=== PATIENT | female | born 1960 | race Caucasian/White ===

== ENCOUNTER → 2018-11-05 | Outpatient (CLI) | payer OTHER ==
[~2018-11-05] MED LIST: BACTRIM DS 8001 TAB PO; IBU400 MG PO; MOTRIN 800800 MG/TAB PO; NO HOME MEDICATIONS; TRAMADOL50 MG PO
== END ==
LOC: MC.RAD 12:54
DX: Z12.31 Encounter for screening mammogram for malignant neoplasm of breast (principal)

== ENCOUNTER 2019-04-01 08:42 | Inpatient (IN) | payer OTHER ==
[~2019-04-01] VITALS: Ht 167.6 cm; Wt 113.4 kg
[2019-06-29] VITALS (11 sets, daily range): BP systolic 98–145; BP diastolic 44–89; PULSE 69–91; TEMP 97.8–98.9
--- NOTE | 2019-06-29 18:00 | NUR ---
Patient has been doing well since getting back from surgery. She walked the hallways and made a lap around the entire floor. Urine output is adequate. Tolerating clear liquid diet well without nausea. IV to INT as ordered. No complaints of pain or nausea. No other changes at this time. Call light within reach.
--- NOTE | 2019-06-29 21:00 | NUR ---
PATIENT IN BED, ALERT AND ORIENTED X4. HAS SL TO LEFT WRIST WITHOUT REDNESS OR SWELLING. HAS ROBOTIC SITES TO LEFT ABD WITH BANDAIDS, LOW TRANSVERSE INCISION WITH DRSG D/I. CHUN TO BSD WITH YELLOW URINE. REPORTS FEELING HUNGRY, PUDDING PROVIDED. DENIES PAIN. HAS CPAP AT BEDSIDE, RT WILL ASSIST WITH SETUP. NO NEEDS AT THIS TIME.
[2019-06-30] VITALS (7 sets, daily range): BP systolic 119–139; BP diastolic 51–86; PULSE 71–98; TEMP 97.6–98.9
--- NOTE | 2019-06-30 00:30 | NUR ---
HAS CPAP ON. NO CONCERNS OFFERED AT THIS TIME. VSS.
--- NOTE | 2019-06-30 04:15 | NUR ---
Pt awake, ambulates in hallway with steady gait. Francisco cath will be dc'd today. Denies pain, emptied 550cc of yellow urine from francisco.
[2019-06-30 05:45] LABS: BASO % 0.3 % (0.0-2.0); EOS % 0.1 % (0-4.0); GRAN # 10.8 (1.4-6.5); HEMATOCRIT 38.3 % (37.0-47.0); HEMOGLOBIN 12.2 g/dl (12.5-16.0); LYMPH # 1.7 (1.2-3.4); LYMPH % 12.3 % (20.0-51.0); MEAN CELL VOLUME 97 fl (80.0-100.0); MEAN CORPUSCULAR HEMOGLOBIN 31 pg (27.0-31.0); MEAN CORPUSCULAR HGB CONC 32 g/dl (33.0-37.0); MEAN PLATELET VOLUME 10.9 fl (7.4-10.4); PLATELET COUNT 248 K/mm3 (130-400); RED BLOOD COUNT 3.96 M/mm3 (4.10-5.30); REDCELL DISTRIBUTION WIDTH-CV 13.7 % (11.5-14.5)
[2019-06-30 05:58] LABS: CALCIUM 8.9 mg/dL (8.4-10.2); CREATININE, serum 0.86 (0.52-1.25); MAGNESIUM 2.1 mg/dL (1.6-2.3); PHOSPHOROUS 3.8 mg/dL (2.5-4.5); POTASSIUM 4.4 mmol/L (3.4-5.0)
--- NOTE | 2019-06-30 09:36 | NUR ---
LUIS F met with the patient to discuss discharge plan. The patient lives in [place] with her , Allen (ph#[phone]). She reports independence with ADLs and she does not have any DME. The patient's PCP is Dr. Tala Patton and she receives her medications at [facility]. She reports no difficulties obtaining her meds. The patient does not have advanced directives completed, but she was interested in obtaining a form for DPOA-HC. LUIS F provided. The patient plans to return home with her upon discharge. No additional needs at this time.
--- NOTE | 2019-06-30 10:12 | NUR ---
Initial visit; Patient thanked Emergency Medical Technician/Driver for looking in on her and offering Gods blessings.
--- NOTE | 2019-06-30 13:42 | NUR ---
Patient sitting up in bed on arrival. A&0x4. Up walking and to the bathroom independently throughout the day. Tolerated walking the halls well. Back in bed resting with at bedside @1345. No further needs. Reported off to SERGIO Ch.
--- NOTE | 2019-06-30 18:00 | NUR ---
Patient has been doing well today. She had a medium loose jamir brown bowel movement twice this evening. Tolerating regular diet. No complaints of nausea. She has been walked several laps around the unit. Marika discontinued this am. She is voiding without issues. No other changes at this time. Call light within reach.
--- NOTE | 2019-06-30 21:30 | NUR ---
PATIENT RESTING IN BED WITH CPAP ON. TAKES HS MEDS WITHOUT PROBLEM. IS ALERT AND ORIENTED X4. ABDOMEN SOFT WITH ACTIVE BOWEL SOUNDS. ROBOTIC SITES X4 WITH LOW TRANSVERSE INCISION NOTED. VOIDING WITHOUT PROBLEM. HOPES TO GO HOME TOMORROW.
[2019-07-01 03:59] VITALS: BP 116/56; PULSE 88; TEMP 98.3
--- NOTE | 2019-07-01 04:10 | NUR ---
PT AWAKE. TAKES PO MEDS. REPORTS ANOTHER BM DURING THE NIGHT. VOIDING WITHOUT PROBLEM.
--- NOTE | 2019-07-01 04:45 | NUR ---
AMBULATES IN HALLWAY WITH STEADY GAIT. NO NEEDS VOICED.
[2019-07-01 07:39] VITALS: BP 143/68; PULSE 95; TEMP 99.1
--- NOTE | 2019-07-01 08:49 | NUR ---
Patient alert and oriented, answers questions appropriately. See assessment. Abdomen soft, non tender, non distended. Bowel sounds active x4 quads. +Flatus. +Bowel movement. Appetite good. Abdominal lap sites and low transverse incision with edges well approximated, no redness or drainage noted. Post op exercises reveiwed with patient. No c/o at this time.
[2019-07-01 12:33] VITALS: BP 117/81; PULSE 99; TEMP 97.7
--- NOTE | 2019-07-01 13:16 | NUR ---
Patient resting in bed A&Ox4 upon arrival. Up walking the halls x2 this morning. No pain reported from patient all day. In bed with sister at bedside. No further needs.
[2019-07-01] MEDS ORDERED: ULTRAM 50MG TAB50 MG PO (15:04)
--- NOTE | 2019-07-01 15:24 | NUR ---
Discharge instructions reviewed with patient and family, verbalized understanding. Discharged via wheelchair to auto/home with family at 1524.
== END 2019-07-01 15:24 | disposition home or self-care (01) | DRG 331 ==
LOC: SURG 06-01 07:30 → INPTSU 06-29 05:10 → SURG 06-29 07:30
PROVIDERS: ADMIT Surgery
PROC: 8E0W4CZ Robotic Assisted Procedure of Trunk Region, Percutaneous Endoscopic Approach (ICD-10-PCS; 2019-06-29)
PROC: 0DTF4ZZ Resection of Right Large Intestine, Percutaneous Endoscopic Approach (ICD-10-PCS; principal; 2019-06-29 07:30)
DX: D12.6 Benign neoplasm of colon, unspecified (principal)
CPT/HCPCS: A4314; A9284; J1100; J1650; J1885; J2250; J2405; J2704; J3010; J7120

== ENCOUNTER → 2019-11-08 | Outpatient (CLI) | payer OTHER ==
[~2019-11-08] MED LIST changes: +ULTRAM 50MG TAB50 MG PO
== END ==
LOC: MC.RAD 09:46
DX: Z12.31 Encounter for screening mammogram for malignant neoplasm of breast (principal)